=== PATIENT | male | born 1950 | race American Indian/Alaskan Native ===

== ENCOUNTER 2017-11-12 22:01 | Emergency (ER) | payer MEDICARE ==
[2017-11-12 23:02] LABS: Basophils # (Auto) 0.1 K/mm3 (0.0-0.1); Eosinophils # (Auto) 0.1 K/mm3 (0.0-0.4); Eosinophils % (Auto) 0.6 % (0.0-4.3); Hematocrit 58.8 % (35.5-45.6); Hemoglobin 19.6 gm/dl (11.8-15.2); Lymphocytes # (Auto) 1.9 K/mm3 (1.2-5.4); Lymphocytes % (Auto) 16.7 % (13.4-35.0); Mean Corpuscular HGB Conc 33 % (32-34); Mean Corpuscular Hemoglobin 28 pg (28-32); Mean Corpuscular Volume 84 fl (84-94); Monocytes # (Auto) 1.1 K/mm3 (0.0-0.8); Monocytes % (Auto) 9.7 % (0.0-7.3); Platelet Count 288 K/mm3 (140-440); Red Blood Count 7.03 M/mm3 (3.65-5.03); Red Cell Distribution Width 15.1 % (13.2-15.2)
[2017-11-12 23:14] LABS: Calcium 10.4 mg/dL (8.4-10.2)
[2017-11-12 23:53] LABS: Bacteria,Urine 1+ /HPF (Negative); Bilirubin,Urine NEG (Negative); Blood,Urine NEG (Negative); Color,Urine Amber (Yellow); Hyaline Casts,Urine 51 /LPF; Mucus,Urine 2+ /HPF
[2017-11-13 00:46] VITALS: BP 138/84
[2017-11-13] MEDS: NACL 0.9% 1000 ML 1,000 ML IV ONE (01:08)
[2017-11-13] MEDS: KEFLEX PO ONE (01:08)
--- NOTE | 2017-11-13 01:28 | Emergency Department Report ---
ED General Adult HPI - General Chief complaint: Pain General Stated complaint: WHOLE BODY CRAMPING Time Seen by Provider: 11/13/17 00:39 Source: patient Mode of arrival: Ambulatory Limitations: No Limitations - History of Present Illness Initial comments: Mr Quan is a 67 year-old man without reported PMH who presents with abdominal pain and muscle cramps. onset toady. Some pain with urination. Cramping in his hands, legs. Abdominal pain is in his lower abdomen and feels like cramping as well. No blood in urine. No fever. No chest pain. no shortness of breath. No home meds. has a pcp. No other complaints. - Related Data Previous Rx's Medication Instructions Recorded Last Taken Type Cephalexin [Keflex] 500 mg PO Q12HR #14 cap 11/13/17 Unknown Rx Allergies Allergy/AdvReac Type Severity Reaction Status Date / Time No Known Allergies Allergy Unverified 11/12/17 22:04 ED Review of Systems ROS: Stated complaint: WHOLE BODY CRAMPING Other details as noted in HPI Comment: All other systems reviewed and negative ED Past Medical Hx - Past Medical History Previous Medical History?: No - Surgical History Past Surgical History?: Yes Additional Surgical History: Hernia - Social History Smoking Status: Current Every Day Smoker Substance Use Type: Alcohol, Marijuana - Medications Home Medications: Home Medications Medication Instructions Recorded Confirmed Last Taken Type Cephalexin [Keflex] 500 mg PO Q12HR #14 cap 11/13/17 Unknown Rx ED Physical Exam - General Limitations: No Limitations General appearance: alert, in no apparent distress - Head Head exam: Present: atraumatic, normocephalic - Eye Eye exam: Present: normal appearance, EOMI. Absent: nystagmus - ENT ENT exam: Present: normal exam, mucous membranes moist - Neck Neck exam: Present: normal inspection. Absent: tenderness, meningismus - Respiratory Respiratory exam: Present: normal lung sounds bilaterally. Absent: respiratory distress - Cardiovascular Cardiovascular Exam: Present: regular rate, normal rhythm - GI/Abdominal GI/Abdominal exam: Present: soft, tenderness, other (mild suprapubic ttp). Absent: distended, guarding, rebound - Rectal Rectal exam: Present: deferred - exam: Present: normal inspection. Absent: testicular tenderness, urethral discharge, scrotal swelling External exam: Present: normal external exam. Absent: erythema, swelling, lesions - Extremities Exam Extremities exam: Present: normal inspection. Absent: tenderness - Back Exam Back exam: Present: normal inspection. Absent: tenderness - Neurological Exam Neurological exam: Present: alert, oriented X3 - Psychiatric Psychiatric exam: Present: normal affect, normal mood - Skin Skin exam: Present: warm, dry, intact, normal color. Absent: rash ED Course Vital Signs 11/12/17 11/13/17 22:04 00:44 Temperature 97.4 F L 97.8 F Pulse Rate 94 H 71 Respiratory 18 18 Rate Blood Pressure 158/98 Blood Pressure 138/84 [Left] O2 Sat by Pulse 97 98 Oximetry ED Medical Decision Making - Lab Data Result diagrams: 11/12/17 22:48 11/12/17 22:48 Lab Results 11/12/17 11/12/17 11/12/17 Range/Units 22:48 22:48 23:43 WBC 11.3 H (4.5-11.0) K/mm3 RBC 7.03 H (3.65-5.03) M/mm3 Hgb 19.6 H (11.8-15.2) gm/dl Hct 58.8 H (35.5-45.6) % MCV 84 (84-94) fl MCH 28 (28-32) pg MCHC 33 (32-34) % RDW 15.1 (13.2-15.2) % Plt Count 288 (140-440) K/mm3 Lymph % (Auto) 16.7 (13.4-35.0) % [place] % (Auto) 9.7 H (0.0-7.3) % Eos % (Auto) 0.6 (0.0-4.3) % Baso % (Auto) 1.0 (0.0-1.8) % Lymph # 1.9 (1.2-5.4) K/mm3 Bath # 1.1 H (0.0-0.8) K/mm3 Eos # 0.1 (0.0-0.4) K/mm3 Baso # 0.1 (0.0-0.1) K/mm3 Seg Neutrophils % 72.0 H (40.0-70.0) % Seg Neutrophils # 8.1 H (1.8-7.7) K/mm3 Sodium 138 (137-145) mmol/L Potassium 4.6 (3.6-5.0) mmol/L Chloride 97.7 L (98-107) mmol/L Carbon Dioxide 26 (22-30) mmol/L Anion Gap 19 mmol/L BUN 17 (9-20) mg/dL Creatinine 1.8 H (0.8-1.5) mg/dL Estimated GFR 46 ml/min BUN/Creatinine Ratio 9 % Glucose 91 (75-100) mg/dL Calcium 10.4 H (8.4-10.2) mg/dL Urine Color Charmaine (Yellow) Urine Turbidity Clear (Clear) Urine pH 5.0 (5.0-7.0) Ur Specific [place] 1.023 (1.003-1.030) Urine Protein 100 mg/dl (Negative) mg/dL Urine Glucose (UA) Neg (Negative) mg/dL Urine Ketones Neg (Negative) mg/dL Urine Blood Neg (Negative) Urine Nitrite Neg (Negative) Urine Bilirubin Neg (Negative) Urine Urobilinogen 4.0 (<2.0) mg/dL Ur Leukocyte Esterase Neg (Negative) Urine WBC (Auto) 10.0 H (0.0-6.0) /HPF Urine RBC (Auto) 9.0 (0.0-6.0) /HPF U Epithel Cells (Auto) < 1.0 (0-13.0) /HPF Urine Bacteria (Auto) 1+ (Negative) /HPF Hyaline Casts 51 /LPF Urine Mucus 2+ /HPF - EKG Data 11/12/17 22:25 HR 77, sinus, normal axis, intervals wnl, no St changes concerning for acute ischemia - Medical Decision Making Mr Quan is a 67 year-old man without PMH who presents with lower abdominal pain, dysuria and diffuse muscle cramps x 1 days. No fever. Well appearing on exam. Mild suprapubic ttp. no cramping here in ED. Suspect this is UTI vs dehydration vs electrolyte derangement. EKG non-ischemic, NSR. Mild hypochloremia and mild hypercalcemia. Giving 1L NS. UA with evidence of UTI. CBC with mild leukocytosis and elevated Hgb. Could be hemoconcentration vs malignancy. Will start keflex 500mg BID x 7 days. Will recommend f/u with his pcp. Suspect this is symptomatic hypercalcemia. Will recommend f/u with pcp this week or next for further testing. Given care instructions, return precautions. Safe for dc to home Critical care attestation.: If time is entered above; I have spent that time in minutes in the direct care of this critically ill patient, excluding procedure time. ED Disposition Clinical Impression: Hypercalcemia Urinary tract infection Qualifiers: Urinary tract infection type: acute cystitis Hematuria presence: without hematuria Qualified Code(s): N30.00 - Acute cystitis without hematuria Disposition: DC-01 TO HOME OR SELFCARE Is pt being admited?: No Does the pt Need Aspirin: No Condition: Stable Instructions: Urinary Tract Infection in Men (ED), Hypercalcemia (ED) Prescriptions: Cephalexin [Keflex] 500 mg PO Q12HR #14 cap Referrals: PRIMARY CARE, [Primary Care Provider] - 3-5 Days
== END 2017-11-13 02:09 | disposition home or self-care (01) ==
LOC: ED 22:01
DX: E83.52 Hypercalcemia (principal); N30.00 Acute cystitis without hematuria; F17.200 Nicotine dependence, unspecified, uncomplicated; F12.10 Cannabis abuse, uncomplicated
CPT/HCPCS: 36415; 80048; 81001; 85025; 93005; 93010; 96360; 99283; J7030

== ENCOUNTER 2018-06-21 19:17 | Inpatient (IN) | payer MEDICARE ==
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
--- NOTE | 2018-06-21 19:53 | Cat Scan Report ---
FINAL REPORT EXAM: CT HEAD/BRAIN WO CON HISTORY: Stroke symptoms TECHNIQUE: CT head without contrast PRIORS: None. FINDINGS: No acute intra-axial or extra-axial hemorrhage is identified. There is no evidence of midline shift or mass effect. The ventricles and sulci are within normal limits. Randhawa-white matter differentiation is intact. No acute parenchymal abnormalities seen. Bony calvarium is grossly intact. Visualized portions of the mastoids and paranasal sinuses are unre markable. IMPRESSION: Negative CT head
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
[2018-06-21 20:51] LABS: Basophils % (Auto) 0.6 % (0.0-1.8); Eosinophils # (Auto) 0.7 K/mm3 (0.0-0.4); Eosinophils % (Auto) 7.9 % (0.0-4.3); Hematocrit 51.7 % (35.5-45.6); Hemoglobin 17.1 gm/dl (11.8-15.2); Lymphocytes # (Auto) 2.6 K/mm3 (1.2-5.4); Lymphocytes % (Auto) 31.2 % (13.4-35.0); Mean Corpuscular HGB Conc 33 % (32-34); Mean Corpuscular Volume 84 fl (84-94); Monocytes # (Auto) 0.7 K/mm3 (0.0-0.8); Monocytes % (Auto) 8.1 % (0.0-7.3); Platelet Count 255 K/mm3 (140-440); Red Blood Count 6.19 M/mm3 (3.65-5.03); Red Cell Distribution Width 15.2 % (13.2-15.2)
[2018-06-21 21:00] LABS: INR 0.9 (0.87-1.13)
[2018-06-21 21:01] LABS: Partial Thromboplastin Time 21.5 Sec. (24.2-36.6); Thrombin Time 15.6 Sec. (15.1-19.6)
[2018-06-21 21:11] LABS: Creatine Kinase MB 1.5 ng/mL (0.0-4.0)
[2018-06-21 21:21] LABS: Alanine Aminotransferase 9 units/L (7-56); Albumin 3.8 g/dL (3.9-5); BUN/Creatinine Ratio 12; Blood Urea Nitrogen 12 mg/dL (9-20); Hemolysis Index 15
[2018-06-21] MEDS ORDERED: DULCOLAX PR PRN (23:01)
[2018-06-21] MEDS ORDERED: ZOFRAN IV PRN (23:01)
[2018-06-21] MEDS ORDERED: TYLENOL PO PRN (23:01)
[2018-06-21] MEDS ORDERED: MILK OF MAGNESIA PO PRN (23:01)
[2018-06-21] MEDS ORDERED: SODIUM CHLORIDE FLUSH SYRINGE 10 ML IV PRN (23:01)
--- NOTE | 2018-06-21 23:10 | History and Physical Report ---
History of Present Illness Date of examination: 06/21/18 History of present illness: 67-year-old man with a history of hypertension, hyperlipidemia comes emergency room complaining of slurred speech and feeling dizzy 10 minutes. In the emergency room he was found to be febrile Review of systems Constitutional: no weight loss, chills, fever Ears, eyes, nose, mouth and throat: no nasal congestion, no nasal discharge, no sinus pressure, no vision change, no red eye. Neck: No neck pain or rigidity. Cardiovascular: no palpitations, chest pain Respiratory: no cough, shortness of breath Gastrointestinal: no hematochezia, abdominal pain Genitourinary : no frequency , no hematuria Musculoskeletal: no joint swelling or muscle ache Integumentary: no rash, no pruritis Neurological: no parathesias, no focal weakness Endocrine: no cold or heat intolerance, no polyuria or polydipsia Hematologic/Lymphatic: no easy bruising, no easy bleeding, no gland swelling Allergic/Immunologic: no urticaria, no angioedema. PAST MEDICAL HISTORY: hypertension, hyperlipidemia PAST SURGICAL HISTORY: None SOCIAL HISTORY: + alcohol, no drugs, +tobacco FAMILY HISTORY: Hypertension Medications and Allergies Allergies Allergy/AdvReac Type Severity Reaction Status Date / Time No Known Allergies Allergy Verified 06/21/18 23:13 Home Medications Medication Instructions Recorded Confirmed Last Taken Type RX: Clopidogrel [Plavix] 75 mg PO QDAY #30 tablet 06/23/18 Unknown Rx RX: Lisinopril/Hydrochlorothiazide 1 tab PO QDAY #30 06/23/18 06/23/18 Unknown Rx [Zestoretic 20-12.5 mg] RX: Pravastatin [Pravachol (Nf)] 80 mg PO QHS #30 06/23/18 06/23/18 Unknown Rx Active Meds: Active Medications Acetaminophen (Tylenol) 650 mg PO Q4H PRN PRN Reason: Pain, Mild (1-3) Aspirin (Aspirin) 325 mg PO QDAY RIVERA Bisacodyl (Dulcolax) 10 mg HI QDAY PRN PRN Reason: Constipation Enoxaparin Sodium (Lovenox) 30 mg SUB-Q QDAY RIVERA Magnesium Hydroxide (Milk Of Magnesia) 30 ml PO Q4H PRN PRN Reason: Constipation Ondansetron HCl (Zofran) 4 mg IV Q8H PRN PRN Reason: Nausea And Vomiting Sodium Chloride (Sodium Chloride Flush Syringe 10 Ml) 10 ml INJ PRN PRN PRN Reason: LINE FLUSH Exam - Physical Exam Narrative exam: General Apperance: The patient lying in bed, breathing comfortable HEENT: Normocephalic, atraumatic. Pupils equally round and reactive to light, EOMI, no sclericterus or JVD or thyromegaly or nodule. , no carotid bruit, mucous membranes moist, no exudate or erythema Heart: S1-S2, regular is rhythm Lungs: Clear to auscultation bilaterally, breathing comfortable Abdomen: Positive bowel sounds, soft, nontender, nondistended, no organomegaly Extremities: No edema cyanosis clubbing Skin: no rash, nodule, warm and dry Neuro: cranial nerves 2-12 intact, speech is fluent, motor/sensory intact - Constitutional Vitals: Temp Pulse Resp BP Pulse Ox 102.2 F H 74 16 115/68 95 06/21/18 21:15 06/21/18 22:31 06/21/18 22:31 06/21/18 22:31 06/21/18 22:31 Results - Labs CBC & Chem 7: 06/21/18 20:06 06/21/18 20:06 Labs: Abnormal lab results 06/21/18 06/21/18 06/21/18 Range/Units 20:06 20:06 20:06 RBC 6.19 H (3.65-5.03) M/mm3 Hgb 17.1 H (11.8-15.2) gm/dl Hct 51.7 H (35.5-45.6) % [place] % (Auto) 8.1 H (0.0-7.3) % Eos % (Auto) 7.9 H (0.0-4.3) % Eos # 0.7 H (0.0-0.4) K/mm3 APTT 21.5 L (24.2-36.6) Sec. Albumin 3.8 L (3.9-5) g/dL - Imaging and Cardiology EKG: image reviewed CT Scan - head: report reviewed Assessment and Plan Assessment TIA SIRS Plan Admit to medicine Obtain MRI of the head, carotid Doppler, echo Do neuro checks, sunscreen Start aspirin, statin [employer] neurology, physical and occupational therapy Obtain chest x-ray, blood cultures, urinalysis Start IV Rocephin DVT prophylaxis
[2018-06-21 23:20] LABS: Bilirubin,Urine NEG (Negative); Blood,Urine MOD (Negative); Color,Urine Yellow (Yellow); Mucus,Urine FEW /HPF; Protein,Urine <15 mg/dL mg/dL (Negative)
[2018-06-21 23:32] LABS: Amphetamine Screen,Urine PRESUMPTIVE NEGATIVE; Benzodiazepines Screen,Urine PRESUMPTIVE NEGATIVE; Cocaine Screen,Urine PRESUMPTIVE NEGATIVE; Methadone Screen,Urine PRESUMPTIVE NEGATIVE; Opiate Screen,Urine PRESUMPTIVE NEGATIVE
--- NOTE | 2018-06-21 23:34 | XRay Report ---
FINAL REPORT EXAM: XR CHEST 1V AP HISTORY: fever TECHNIQUE: upright single view chest PRIORS: None. FINDINGS: Cardiac and mediastinal contours are unremarkable. No focal pulmonary infiltrate is identified. No pleural fluid collection seen. Pulmonary vasculature is unremarkable. IMPRESSION: Negative single-view chest
[2018-06-21 23:56] LABS: Cannabinoid Screen,Urine PRESUMPTIVE POSITIVE
[2018-06-22] MEDS: ROCEPHIN/NS 1 GM/50 ML 1 GM/50 ML BAG IV SCH (03:55)
[2018-06-22 04:44] LABS: Chol/HDL Ratio 3.35 %
[2018-06-22 05:58] LABS: Bilirubin,Urine NEG (Negative); Blood,Urine SM (Negative); Color,Urine Yellow (Yellow); Hyaline Casts,Urine 1 /LPF; Mucus,Urine FEW /HPF; Protein,Urine <15 mg/dL mg/dL (Negative); WBC,Urine < 1.0 /HPF (0.0-6.0)
[2018-06-22] MEDS: ASPIRIN PO SCH (10:00)
[2018-06-22] MEDS ORDERED: LOVENOX SUB-Q SCH (10:00)
[2018-06-22] MEDS: LOVENOX SUB-Q SCH (12:03)
--- NOTE | 2018-06-22 12:25 | Progress Note ---
Assessment and Plan possible TIA, MRI pending - cont stroke workup and stroke protocol - cont aspirin/statin - [employer] neurology, physical and occupational therapy HTN, cont to monitor, resume home meds HLD, cont statin DVT px, lovenox Subjective Date of service: 06/22/18 Interval history: pt seen and examined denies any chest pain or SOB, normal speech, no focal weakness Objective - Constitutional Vitals: Vital Signs - 12hr 06/22/18 06/22/18 03:33 09:09 Temperature 98.1 F 98.3 F Pulse Rate 69 58 L Respiratory 18 18 Rate Blood Pressure 133/76 134/79 O2 Sat by Pulse 94 96 Oximetry General appearance: Present: no acute distress, well-nourished - EENT Eyes: PERRL, EOM intact ENT: hearing intact, clear oral mucosa Ears: bilateral: normal - Neck Neck: supple, normal ROM - Respiratory Respiratory effort: normal Respiratory: bilateral: CTA - Cardiovascular Rhythm: regular Heart Sounds: Present: S1 & S2. Absent: gallop, rub Extremities: pulses intact, No edema, normal color, Full ROM - Gastrointestinal General gastrointestinal: Present: soft, non-tender, non-distended, normal bowel sounds - Integumentary Integumentary: clear, warm, dry - Musculoskeletal Musculoskeletal: 1, strength equal bilaterally - Neurologic Neurologic: moves all extremities - Psychiatric Psychiatric: memory intact, appropriate mood/affect, intact judgment & insight - Labs CBC & Chem 7: 06/21/18 20:06 06/21/18 20:06 Labs: Abnormal lab results 06/21/18 06/21/18 06/21/18 Range/Units 20:06 20:06 20:06 RBC 6.19 H (3.65-5.03) M/mm3 Hgb 17.1 H (11.8-15.2) gm/dl Hct 51.7 H (35.5-45.6) % [place] % (Auto) 8.1 H (0.0-7.3) % Eos % (Auto) 7.9 H (0.0-4.3) % Eos # 0.7 H (0.0-0.4) K/mm3 APTT 21.5 L (24.2-36.6) Sec. Albumin 3.8 L (3.9-5) g/dL
--- NOTE | 2018-06-22 13:36 | Magnetic Resonance Report ---
MRI OF THE BRAIN WITHOUT CONTRAST: HISTORY: Stroke PROCEDURE: Multiplanar, multisequence MR imaging of the brain without IV contrast was performed. FINDINGS: Compared to the CT head dated 06/21/18. The diffusion weighted images demonstrate 2 tiny foci of weak diffusion restriction in the left parietal white matter on images 24 and 25 measuring less than 5 mm. No convincing decreased signal is identified on the ADC map in these areas. There is subtle increased T2 signal in these areas on the T2-weighted images and flair images. These probably represent tiny areas of subacute ischemia. Please correlate with the patient's clinical symptoms. Minimal nonspecific chronic white matter changes are identified. Otherwise, the brain parenchyma signal intensity and its pratt-white interface are normal on all sequences. No evidence for hemorrhage, mass, extra-axial fluid collection or midline shift. No chronic infarct is identified. The midline structures are central. The basal cisterns are patent. Normal ventricular size. The orbital cavities and sella turcica demonstrate no abnormality. The visualized paranasal sinuses and mastoid air cells are well aerated. IMPRESSION: There are 2 tiny questionable areas of subacute ischemia in the left parietal lobe as described above. Please correlate with the patient's clinical presentation. Minimal nonspecific chronic white matter changes.
--- NOTE | 2018-06-22 14:12 | Vascular Lab Report ---
FINAL REPORT EXAM: VL CAROTID DUPLEX BILAT HISTORY: stroke TECHNIQUE: Grayscale and color and spectral Doppler ultrasound imaging of the carotid arteries was p erformed. PRIORS: None. FINDINGS: No areas of complete occlusion. Normal waveforms are seen throughout. No aneurysm. Normal flow is see n in the external carotid arteries. Antegrade flow is seen in the vertebral arteries. Mild calcified and noncalcified atherosclerotic plaque is seen. Peak systolic velocities in cm/s below: Right: CCA: 77 proximally, 60 distally ICA: 47 proximally, 75 mid, 61 distally ECA: 48 Left: CCA: 72 proximally, 49 distally ICA: 46 proximally, 49 mid, 46 distally ECA: 51 The right ICA:CCA ratio is 1.25. The left ICA:CCA ratio is 1.0. IMPRESSION: Less than 50 percent stenosis of the internal carotid arteries.
[2018-06-22] MEDS ORDERED: PRAVACHOL PO SCH ×3 (22:00)
[2018-06-23] MEDS: ROCEPHIN/NS 1 GM/50 ML 1 GM/50 ML BAG IV SCH (04:59)
[2018-06-23 09:56] VITALS: BP 155/91
[2018-06-23] MEDS ORDERED: ZESTRIL PO SCH (10:00)
[2018-06-23] MEDS ORDERED: NON-FORMULARY (Lisinopril/Hydrochlorothiazide [Zestoretic 20-12.5 Mg] 1 TAB) PO SCH (10:00)
[2018-06-23] MEDS ORDERED: HCTZ PO SCH (10:00)
[2018-06-23] MEDS: ASPIRIN PO SCH (10:43)
[2018-06-23] MEDS: LOVENOX SUB-Q SCH (10:45)
[2018-06-23] MEDS ORDERED: PLAVIX PO SCH (12:00)
--- NOTE | 2018-06-23 14:27 | Discharge Summary ---
Providers - Providers Date of Admission: 06/21/18 23:02 Date of discharge: 06/23/18 Attending physician: BRIJESH DOUGLAS 06/21/18 23:02 Occupational Therapy Evaluate and Treat [CONS] Routine Comment: Reason For Exam: Neuro deficits Physical Therapy Evaluation and Treat [CONS] Routine Comment: Reason For Exam: Neuro deficits 06/23/18 09:06 Consult to Physician [CONS] Routine Comment: Consulting Provider: QUENTIN AMANDA Physician Instructions: Reason For Exam: cva Hospitalization Condition: Good Pertinent studies: MRI brain: There are 2 tiny questionable areas of subacute ischemia in the left parietal lobe as described above. Please correlate with the patient's clinical presentation. Minimal nonspecific chronic white matter changes. CT head w/o contrast: Negative CT head Carotid doppler: Less than 50 percent stenosis of the internal carotid arteries. 2d echo - EF 50-55% CXR: Negative single-view chest Hospital course: Brief History: 67-year-old man with a history of hypertension, hyperlipidemia came emergency room complaining of slurred speech and feeling dizzy 10 minutes. His BP on admission was 107/73. He was admitted with stroke protocol. Workup showed possible subacute CVA. He takes aspirin at home which changed to plavix. Neurology was consulted and recommended CTA head/neck but he refused to do the test and wanted to f/u outpt with his PCP. He also didnot wait to be seen by neurologist, stated he wants to f/u outpt and wants to be discharge. He was then discharged home in stable condition with outpt followup. Discharge diagnosis: Subacute CVA, - admitted for stroke workup and stroke protocol - Placed on statin and plavix as he has CVA with aspirin - Video Camera Operator neurology, physical and occupational therapy - refused CTA head/neck and wanted to do further f/u outpt - MRI showed subacute ischemia in the left parietal lobe HTN, monitored, resumed home meds HLD, cont statin DVT px, lovenox Disposition: DC-01 TO HOME OR SELFCARE Time spent for discharge: 34 minutes Core Measure Documentation - Palliative Care Palliative Care/ Comfort Measures: Not Applicable - Core Measures Any of the following diagnoses?: stroke - Stroke Discharge Requirements Statin for LDL = or >70 mg/dl on DC: Yes Anticoag for atrial fib/atrial flutter: Not Applicable Antithrombotic for ischemic stroke: Yes Exam - Constitutional Vitals: Temp Pulse Resp BP Pulse Ox 97.4 F L 62 20 155/91 97 06/23/18 09:24 06/23/18 10:44 06/23/18 10:00 06/23/18 10:44 06/23/18 10:19 General appearance: Present: no acute distress, well-nourished - EENT Eyes: Present: PERRL ENT: hearing intact, clear oral mucosa - Neck Neck: Present: supple, normal ROM - Respiratory Respiratory effort: normal Respiratory: bilateral: CTA - Cardiovascular Heart Sounds: Present: S1 & S2. Absent: rub, click - Extremities Extremities: pulses symmetrical, No edema Peripheral Pulses: within normal limits - Abdominal General gastrointestinal: Present: soft, non-tender, non-distended, normal bowel sounds - Integumentary Integumentary: Present: clear, warm, dry - Musculoskeletal Musculoskeletal: gait normal, strength equal bilaterally - Psychiatric Psychiatric: appropriate mood/affect, intact judgment & insight - Neurologic Neurologic: CNII-XII intact, moves all extremities Plan Activity: advance as tolerated Weight Bearing Status: Non-Weight Bearing Diet: low fat, low salt Additional Instructions: need event monitor as outpt for a month. CTA head/neck outpt as patient preference Follow up with: RENAN HOYT MD [Staff Physician] - 3-5 Days Prescriptions: Clopidogrel [Plavix] 75 mg PO QDAY #30 tablet
== END 2018-06-23 18:01 | disposition home or self-care (01) | DRG 65 ==
LOC: ED 19:17 → 4A 23:02
PROVIDERS: ADMIT Internal Medicine; ATTEND Internal Medicine
DX: I63.9 Cerebral infarction, unspecified (principal); R65.10 Systemic inflammatory response syndrome (SIRS) of non-infectious origin without acute organ dysfunction; I10 Essential (primary) hypertension; F17.210 Nicotine dependence, cigarettes, uncomplicated; E78.5 Hyperlipidemia, unspecified; Z82.49 Family history of ischemic heart disease and other diseases of the circulatory system
CPT/HCPCS: 36415; 70450; 70551; 71045; 80053; 80061; 80307; 80320; 81001; 82550; 82553; 82962; 84443; 84484; 85025; 85610; 85670; 85730; 87040; 93005; 93010; 93306; 93880; 99406; G0378; A9270-GY; G0480; J0696; J1650